=== PATIENT | male | born 1990 | race Caucasian/White ===

== ENCOUNTER 2025-06-04 08:20 | Emergency (ER) | payer BC, SELFPAY ==
[2025-06-04 08:38] VITALS: BP 159/84; PULSE 88; RESP 18; TEMP 36.8; O2SAT 99
--- NOTE | 2025-06-04 09:18 | ED_ITS ---
HPI - General Adult General Chief complaint: Wound/Laceration Stated complaint: sliced thumb with utility knife Time Seen by Provider: 06/04/25 08:38 History of Present Illness HPI narrative: Patient is a 34-year-old male who presents ER with laceration to ulnar aspect left thumb. Middle phalanx. 2.5 cm in length. No numbness or tingling. Bleeding controlled. Unknown last tetanus. Slice with a utility knife while installing a counter top. Right-hand dominant. Related Data Allergies Allergy/AdvReac Type Severity Reaction Status Date / Time No Known Allergies Allergy Verified 06/04/25 08:41 Review of Systems Constitutional: Constitutional: Reports no additional constitutional complaints Musculoskeletal: Musculoskeletal: Reports no additional musculoskeletal complaints Neurologic: Reports system reviewed and no additional complaints, except as documented PMFSH Past Medical History Medical History (Updated 06/04/25 @ 10:02 by Geoff Garcia MD) Healthy adult male Exam Narrative: GENERAL: Well-appearing, well-nourished, and in no acute distress. HEAD: Normocephalic, atraumatic. ENT: Mucous membranes moist. HEART: Regular rate and rhythm. Normal peripheral pulses. EXTREMITIES: Left thumb with 2.5 cm laceration ulnar aspect of the middle phalanx without involvement bone in a bloodless field. Neurovascular intact. Normal flexion extension at the D IP and MCP. NEURO: Alert and oriented x3. Course Vital Signs Vital signs: Vital Signs Temperature 98.2 F 06/04/25 08:38 Pulse Rate 88 06/04/25 08:38 Respiratory Rate 18 06/04/25 08:38 Blood Pressure 159/84 H 06/04/25 08:38 Pulse Oximetry 99 06/04/25 08:38 Oxygen Delivery Room Air 06/04/25 08:38 Temperature 98.2 F 06/04/25 08:38 Pulse Rate 88 06/04/25 08:38 Respiratory Rate 18 06/04/25 08:38 Blood Pressure 159/84 H 06/04/25 08:38 Pulse Oximetry 99 06/04/25 08:38 Oxygen Delivery Room Air 06/04/25 08:38 Procedures Laceration Laceration 1: Date: 06/04/25 Time: 10:00 Site: hand (1st digit) Side (If applicable): left Size (cm): 2.5 Description: linear Depth: simple, single layer Local Anesthetic: lidocaine 1% Amount of anesthesia used (mL): 3 Pre-repair: wound explored and irrigated ====== Skin Level ====== Skin layer closed with: nylon Size (cm): 4-0 Number of sutures: 4 Technique: simple, interrupted ====== Subcutaneous Layer ====== ====== Muscle Layer ====== ====== Tendon Layer ====== Medical Decision Making Vital Signs Vital Signs: Vital Signs Temperature 98.2 F 06/04/25 08:38 Pulse Rate 88 06/04/25 08:38 Respiratory Rate 18 06/04/25 08:38 Blood Pressure 159/84 H 06/04/25 08:38 Pulse Oximetry 99 06/04/25 08:38 Oxygen Delivery Room Air 06/04/25 08:38 Temperature 98.2 F 06/04/25 08:38 Pulse Rate 88 06/04/25 08:38 Respiratory Rate 18 06/04/25 08:38 Blood Pressure 159/84 H 06/04/25 08:38 Pulse Oximetry 99 06/04/25 08:38 Oxygen Delivery Room Air 06/04/25 08:38 Discharge Plan Discharge Clinical Impression: Laceration Patient Disposition: Home Condition: Stable Instructions: Care For Your Stitches (ED) Additional Instructions: Remove your sutures in 14 days (06/18/25). Return ER if your thumb is red hot, the wound is draining pus, or you have additional concerns. Patient Language: Citizen Of [place] Follow-up/Referrals: Blake Pedroza MD [Physician] - 1 Week
[2025-06-04] MEDS: TETANUS,DIPHTHERIA,AC PERTUSSIS ADULT (0.5 ML) BOOSTRIX IM (09:23)
== END 2025-06-04 10:13 | disposition home or self-care (01) ==
PROVIDERS: Emergency Provider Emergency Medicine
DX: S61.012A Laceration without foreign body of left thumb without damage to nail, initial encounter (principal); Z23 Encounter for immunization; W27.0XXA Contact with workbench tool, initial encounter
CPT/HCPCS: 12001; 90471; 90715; 99282